=== PATIENT | female | born 1995 | race Caucasian/White ===

== ENCOUNTER 2017-05-03 13:33 | Outpatient (CLI) | payer OTHER ==
[2017-05-03] MEDS ORDERED: IOHEXOL 50 ML IV ONE (14:06)
== END 2017-05-03 19:52 | disposition home or self-care (01) ==
LOC: SRD 13:33
PROVIDERS: ATTEND Obstetrics & Gynecology
DX: N97.9 Female infertility, unspecified (principal)
CPT/HCPCS: 74740; C1751; Q9967